=== PATIENT | male | born 1965 | race Hispanic/Latino ===

== ENCOUNTER → 2018-12-04 | Outpatient (CLI) | payer BC ==
--- NOTE | 2018-12-04 09:58 | Diagnostic Imaging Report ---
EXAM: CT Abdomen and Pelvis WITHOUT contrast INDICATION: Kidney stone, hematuria COMPARISON: None. TECHNIQUE: Abdomen and pelvis were scanned utilizing a multidetector helical scanner from the lung base to the pubic symphysis without administration of IV contrast. Absence of intravenous contrast decreases sensitivity for detection of focal lesions and vascular pathology. Coronal and sagittal reformations were obtained. Renal stone protocol was performed. Dose modulation, iterative reconstruction, and/or weight based adjustment of the mA/kV was utilized to reduce the radiation dose to as low as reasonably achievable. IV CONTRAST: None. ORAL CONTRAST: None RADIATION DOSE: Total DLP: 239.33 mGy*cm Estimated effective dose: (DLP x 0.015 x size factor) mSv COMPLICATIONS: None FINDINGS: LINES and TUBES: None. LOWER THORAX: There are patchy opacity in the right middle and lower lobes and lingula, likely related to atelectasis or scarring. HEPATOBILIARY: No focal hepatic lesions. No biliary ductal dilation. GALLBLADDER: No radio-opaque stones or sludge. No wall thickening. SPLEEN: No splenomegaly. PANCREAS: No focal masses or ductal dilatation. ADRENALS: No adrenal nodules KIDNEYS/URETERS: There is mild left hydronephrosis, with dilatation of the renal pelvis and mild surrounding inflammatory stranding. No cystic or solid mass lesions. There is a 7 mm calculus in the left renal pelvis. No other intrarenal calculi. Punctate calcifications adjacent to the proximal left ureter are likely within and adjacent vascular structure versus punctate ureteral calculi. GI TRACT: No abnormal distention, wall thickening, or evidence of bowel obstruction. Appendix is normal. PELVIC ORGANS/BLADDER: Urinary bladder unremarkable. No discrete abnormal mass or fluid collection in the pelvis. LYMPH NODES: No dominant lymph node mass in the abdomen, retroperitoneum or pelvis. VESSELS: The abdominal aorta is atherosclerotic with calcified plaques in the aorta, iliac and femoral arteries, and aortic branch vessels. No abdominal aortic aneurysm. Unenhanced IVC unremarkable. A retroaortic left renal vein is noted. PERITONEUM / RETROPERITONEUM: No pneumoperitoneum or ascites. BONES: No acute or suspicious bony lesion. SOFT TISSUES: Superficial surrounding soft tissues show small bilateral inguinal hernias containing fat. There is a small umbilical hernia containing fat. IMPRESSION: 1. There is mild left hydronephrosis with a 7 mm calculus in a mildly distended left renal pelvis. There is fat stranding surrounding the renal pelvis suggesting intermittent obstruction by the calculus. 2. Punctate one in 2 mm calcifications are seen adjacent to the proximal left ureter, more likely representing calcifications in an adjacent vessel rather than tiny ureteral calculi. 3. Atherosclerotic calcification is seen in the aorta and branch vessels with no aneurysm. Staff: [place] Signed by: Dr. Arcenio Carroll M.D. on 12/04/2018 9:55 AM
== END ==
LOC: CT 08:21
PROVIDERS: ATTEND Internal Medicine
DX: R31.9 Hematuria, unspecified (principal); N20.0 Calculus of kidney; N39.0 Urinary tract infection, site not specified
CPT/HCPCS: 74176